=== PATIENT | male | born 1965 | race Caucasian/White ===

== ENCOUNTER 2017-08-14 06:53 | Day surgery (SDC) | payer OTHER ==
[~2017-08-14] VITALS: Ht 172.7 cm; Wt 87.7 kg
[2017-08-14] MEDS ORDERED: LACTATED RINGERS 1,000 ML IV SCH (07:21)
[2017-08-14 07:24] VITALS: BP 138/79
[2017-08-14] MEDS ORDERED: PROPOFOL 10 MG/ML, 20ML ONE (07:33)
[2017-08-14] MEDS ORDERED: FENTANYL PF 100 MCG/2ML ONE (07:33)
[2017-08-14] MEDS ORDERED: ROCURONIUM 10 MG/ML ONE (07:33)
[2017-08-14] MEDS ORDERED: SUCCINYLCHOLINE 20 MG/ML, 10ML ONE (07:34)
[2017-08-14] MEDS ORDERED: POTA10TA17 PO (07:43)
[2017-08-14] MEDS ORDERED: TRAZ50TA18 PO (07:43)
[2017-08-14] MEDS ORDERED: ASPI-496 PO (07:43)
[2017-08-14] MEDS ORDERED: METO25TA35 PO (07:43)
[2017-08-14] MEDS ORDERED: LOSA25TA5 PO (07:43)
[2017-08-14 07:52] LABS: HEMATOCRIT 45.7 % (39.2-51.8); HEMOGLOBIN 15.4 g/dL (13.7-18.0); WHITE BLOOD COUNT 8.4 x10^3/uL (3.4-10)
[2017-08-14] MEDS ORDERED: MIDAZOLAM 1 MG/ML, 2ML ONE (07:55)
[2017-08-14 07:59] LABS: ASPARTATE AMINO TRANSFERASE 56 U/L (15-37); BLOOD UREA NITROGEN 15 mg/dL (7-18)
[2017-08-14] MEDS ORDERED: ACETAMINOPHEN 325 MG TABLET PO PRN (08:00)
[2017-08-14] MEDS ORDERED: MEPERIDINE/PF 25MG/0.5ML IVPush PRN (08:00)
[2017-08-14] MEDS ORDERED: FENTANYL PF 100 MCG/2ML IV PRN (08:00)
[2017-08-14] MEDS ORDERED: HYDROcodone/APAP 7.5-325MG/15ML UDC PO PRN (08:00)
[2017-08-14] MEDS ORDERED: ALBUTEROL SULFATE 2.5 MG/3 ML NPPB PRN (08:00)
[2017-08-14] MEDS ORDERED: OXYcodone 5 MG/5 ML ORAL.SOL UDC PO PRN (08:00)
[2017-08-14] MEDS ORDERED: ONDANSETRON 2MG/ML, 2ML IVPush PRN (08:00)
[2017-08-14] MEDS ORDERED: METOCLOPRAMIDE 5 MG/ML, 2ML IV PRN (08:00)
[2017-08-14] MEDS ORDERED: LABETALOL 5MG/ML, 20ML IV PRN (08:00)
[2017-08-14] MEDS ORDERED: PROMETHAZINE 25 MG/ML, 1ML IV PRN (08:00)
[2017-08-14] MEDS ORDERED: hydrALAzine 20 MG/ML, 1ML IV PRN (08:00)
[2017-08-14] MEDS ORDERED: EPHEDRINE 50 MG/ML, 1ML IVPush PRN (08:00)
[2017-08-14] MEDS ORDERED: HYDROmorphone 1 MG/ML, 1ML IV PRN (08:00)
[2017-08-14] MEDS ORDERED: METOPROLOL 1 MG/ML, 5ML IV PRN (08:00)
[2017-08-14] MEDS ORDERED: DEXAMETHASONE 4 MG/ML, 1ML ONE ×2 (08:14)
[2017-08-14] MEDS ORDERED: ONDANSETRON 2MG/ML, 2ML ONE (08:14)
== END 2017-08-14 10:40 | disposition home or self-care (01) ==
LOC: OUT 06:53
PROVIDERS: ATTEND Internal Medicine Geriatric Medicine
DX: K86.1 Other chronic pancreatitis (principal); I10 Essential (primary) hypertension
CPT/HCPCS: 36415; 43239; 43242; 80053; 85025; 85610; 88305; 88307; 88313; 93005; J0330; J1100; J2250; J2405; J2704; J3010; J7120

== ENCOUNTER 2021-04-08 08:03 | Observation (INO) | payer OTHER ==
[~2021-04-08] VITALS: Ht 172.7 cm; Wt 103.9 kg
[~2021-04-08 08:03] MED LIST: ASPI-496 PO; LOSA25TA25 PO; METO25TA35 PO; POTA10TA17 PO; TRAZ50TA66 PO
[2021-04-08] MEDS ORDERED: UBIQ100C2 PO (10:04)
[2021-04-08] MEDS ORDERED: ALIR75PE SQ (10:05)
[2021-04-08 10:07] VITALS: BP 151/86
[2021-04-08 10:20] LABS: BASOPHILS % (AUTO) 1 % (0-1); EOSINOPHILS % (AUTO) 2 % (1-7); LYMPHOCYTES % (AUTO) 32 % (22-44); MD NO; MEAN CORPUSCULAR HEMOGLOBIN 33.9 pg (27.5-34.5); MEAN CORPUSCULAR HGB CONC 35.4 g/dL (33.2-36.2); MEAN PLATELET VOLUME 8.1 fL (7.4-10.4); MONOCYTES % (AUTO) 12 % (2-9); NEUTROPHILS % (AUTO) 54 % (42-75); PLATELET COUNT 369 x10^3/uL (130-400); RED BLOOD COUNT 4.79 x10^6/uL (4.38-5.82)
[2021-04-08 10:31] LABS: ANION GAP 4 mmol/L (5-15); CALCIUM 9.3 mg/dL (8.5-10.1); CHLORIDE 106 mmol/L (98-107)
[2021-04-08 10:32] LABS: CREATININE 1.11 mg/dL (0.7-1.3)
[2021-04-08] MEDS ORDERED: MIDAZOLAM 1 MG/ML, 5ML ONE (11:10)
[2021-04-08] MEDS ORDERED: BIVALIRUDIN 250 MG ONE (11:10)
[2021-04-08] MEDS ORDERED: FENTANYL PF 100 MCG/2ML ONE ×2 (11:10→11:52)
[2021-04-08] MEDS ORDERED: HEPARIN 1,000 UNITS/ML, 10ML ONE (11:10)
[2021-04-08] MEDS ORDERED: LIDOCAINE-MPF 1%, 5ML ONE (11:10)
[2021-04-08] MEDS ORDERED: VERAPAMIL 2.5 MG/ML, 2ML ONE (11:10)
[2021-04-08] MEDS ORDERED: TICAGRELOR 90 MG TABLET ONE (11:10)
[2021-04-08] MEDS ORDERED: DIPHENHYDRAMINE 50 MG/ML, 1ML ONE (11:32)
[2021-04-08] MEDS ORDERED: MIDAZOLAM 1 MG/ML, 2ML ONE (11:52)
[2021-04-08] MEDS ORDERED: PRASUGREL 10 MG TABLET ONE (11:58)
[2021-04-08] MEDS ORDERED: ONDANSETRON 2MG/ML, 2ML IVPush PRN (13:00)
[2021-04-08] MEDS ORDERED: ZOLPIDEM 5MG TABLET PO PRN (13:00)
[2021-04-08] MEDS ORDERED: SODIUM CHLORIDE 0.9% 1,000 ML IV SCH (13:00)
[2021-04-08] MEDS ORDERED: BIVALIRUDIN 250 MG in SODIUM CHLORIDE 0.9% 50 ML IV SCH (13:00)
[2021-04-08 13:29] VITALS: BP 117/79
[2021-04-08] MEDS ORDERED: ACETAMINOPHEN 325 MG TABLET PO PRN (15:30)
[2021-04-08 21:30] VITALS: BP 147/85
[2021-04-08] MEDS: LOSARTAN 50MG TABLET PO SCH (21:32)
[2021-04-08] MEDS: METOPROLOL TARTRATE 25 MG TAB PO SCH (21:32)
[2021-04-08] MEDS ORDERED: LORazepam 0.5MG TABLET PO ONE (22:30)
[2021-04-09 01:07] VITALS: BP 127/81
[2021-04-09 05:09] LABS: CHLORIDE 110 mmol/L (98-107)
[2021-04-09 05:16] LABS: ANION GAP 7 mmol/L (5-15); CALCIUM 8.4 mg/dL (8.5-10.1); CREATININE 1.05 mg/dL (0.7-1.3)
[2021-04-09 07:17] VITALS: BP 130/79
[2021-04-09] MEDS ORDERED: PRAS10TA4 PO (08:21)
[2021-04-09] MEDS ORDERED: ASPIRIN 81 MG TABLET EC PO SCH ×2 (09:00)
[2021-04-09] MEDS ORDERED: UBIQUINOL 100 MG HOMEMEDPO SCH (09:00)
[2021-04-09] MEDS ORDERED: PRASUGREL 10 MG TABLET PO SCH (09:00)
[2021-04-09] MEDS: METOPROLOL TARTRATE 25 MG TAB PO SCH (09:02)
[2021-04-09] MEDS: LOSARTAN 50MG TABLET PO SCH (09:02)
== END 2021-04-09 11:16 | disposition home or self-care (01) ==
LOC: CACL 08:03 → 5SO 12:24 → CACL 15:39
PROVIDERS: ADMIT Internal Medicine Cardiovascular Disease; ATTEND Internal Medicine Cardiovascular Disease
DX: I25.110 Atherosclerotic heart disease of native coronary artery with unstable angina pectoris (principal); I10 Essential (primary) hypertension; F10.10 Alcohol abuse, uncomplicated; F12.10 Cannabis abuse, uncomplicated; Z79.899 Other long term (current) drug therapy
CPT/HCPCS: 36415; 71046; 80048; 85025; 93005; 93458; 99156; 99157; C1725; C1769; C1874; C1887; C1894; C9600; G0378; J0583; J1200; J1644; J2250; J3010; Q9967